=== PATIENT | female | born 1970 | race American Indian/Alaskan Native ===

== ENCOUNTER 2018-05-30 02:13 | Emergency (ER) | payer MEDICAID, MEDICARE ==
[~2018-05-30] VITALS: Ht 160 cm; Wt 260.0 kg
[~2018-05-30 02:13] MED LIST: ALPR-624 PO; BUPR150T PO; CALC0.5C2 PO; CALC260T6 PO; CHOL100010 PO; CLA10T PO; DOCU100T PO; ESCI20TA29 PO; EXEN5PEN2 SQ; FERR142T6 PO; GABA800T PO; HYDR1TAB PO; LEVA15HF4 IH; MAG400T PO; METF1000 PO; MODA200T25 PO; MOME17SP NS; NATE120T PO; OMEG1CAP54 PO; OXCA300T4 PO; PANT40TA39 PO; PIOG45TA PO; PSYL283P18 PO; ROSU5TAB4 PO; SUMA25TA35 PO; SYN0.1T PO; VITA200T6 PO; VITC500T PO; ZOLP12.531 PO
[2018-05-30] MEDS ORDERED: traMADol 50MG tablet PO ONE (02:30)
--- NOTE | 2018-05-30 09:45 | NUR ---
EDWARD FROM [employer] SPEAKING WITH PT.
--- NOTE | 2018-05-30 12:43 | NUR ---
INFORMED DR COTTRELL THAT PHYSICAL THERAPY GOT PATIENT UP TO HER WHEELCHAIR. PATIENT DESATURATED TO 89% AFTER GETTING PATIENT OOB. PHYSICAL THERAPIST PLACED PT ON O2 NC 2 LITERS. PATIENT'S WHEELCHAIR IS TOO WIDE TO ALLOW PATIENT ENTRY INTO ANY OF OUR BATHROOMS. PATIENT IS MOSTLYBED/ WC BOUND AT HOME AND TRANSFERS WITH ASSIST TO [facility] [place]
--- NOTE | 2018-05-30 12:46 | NUR ---
CALLED NURSING SUPERVISOR ROLLER SHOP TO OBTAIN BSC WIDE ENOUGH TO ACCOMADATE PATIENT TO ALLOW TRANSFER TO BSC
--- NOTE | 2018-05-30 12:59 | NUR ---
SPOKE WITH EDWARD, SOCIAL SERVICE HEAD COMPUTER GAME PROGRAMMER AT [employer] [facility] IS GOING TO LOOK AT PATIENT'S HOUSE TO SEE HOW THE PATIENT GETS IN AND OUT OF HER HOUSE AND LOOK AT THE RAMP. NURSING COMPUTER GAME PROGRAMMER CALLED BACK AND IS ATTEMPTING TO OBTAIN COMMODE WIDE ENOUGH TO ACCOMODATE THE PATIENT SO SHE CAN BOTH GO TO THE BATHROOM AND BE EVALUATED ON HER TRANSFER TO THE COMMODE WITH PHYSICAL THERAPY. SLITTER SERVICE AND SETTER SWETA INFORMED AND WILL CALL PHYSICAL THERAPY TO COME BACK TO EVALUATE PATIENT TRANSFER TO COMMODE.
--- NOTE | 2018-05-30 13:39 | NUR ---
PATIENT UP TO BSC. PER BREANNA GALLAGHER, PATIENT IS A MINIMAL ONE PERSON ASSIST AND WOULD BEFIT FRAM A WALKER
--- NOTE | 2018-05-30 13:47 | NUR ---
PATIENT STATES THAT THERE IS A CONCRETE RAMP ON THE OUTSIDE OF THE HOUSE. THEY HAVE A WOODEN RAMP FOR THE TWO STEPS INSDIE THE HOUSE BUT "SOMEBODY LEFT IT OUTSIDE IN THE RAIN"
--- NOTE | 2018-05-30 13:48 | NUR ---
PATIENT SITTING IN HER WHEELCHAIR AFTER VOIDING IN BSC
[2018-05-30] MEDS ORDERED: diphenhydrAMINE 25 MG/10 ML UD oral solution PO ONE (14:10)
--- NOTE | 2018-05-30 15:23 | NUR ---
SPOKE WITH MIGUEL ANGEL LEON FROM [employer] IS BRINGING TWO GEOMATS
--- NOTE | 2018-05-30 15:24 | NUR ---
SPOKE WITH PATIENTS EVERARDO [phone]. SPOKE TO IN [place], HE IS AWARE THAT HIS IS DUE TO BE TRANSPORTED HOME AT 1630 TODAY. IS AT HOME
--- NOTE | 2018-05-30 15:27 | NUR ---
EDWARD IS WORKING ON OBTAINING A WALKER FOR PATIENT PRIOR TO DISCHARGE. OTHERWISE, AMALIA IS GOING TO BORROW A WALKER AND A GAIT BELT
--- NOTE | 2018-05-30 16:23 | NUR ---
PATIENT UP TO BSC WITH FFW X 2
[2018-05-30 16:49] VITALS: BP 163/81
== END 2018-05-30 16:51 | disposition home or self-care (01) ==
LOC: ER 02:14
DX: S06.0X0A Concussion without loss of consciousness, initial encounter (principal); S89.81XA Other specified injuries of right lower leg, initial encounter; E66.01 Morbid (severe) obesity due to excess calories; K21.9 Gastro-esophageal reflux disease without esophagitis; E11.9 Type 2 diabetes mellitus without complications; G89.29 Other chronic pain; Z56.0 Unemployment, unspecified; Z98.890 Other specified postprocedural states; Z87.442 Personal history of urinary calculi; Z79.899 Other long term (current) drug therapy; Z88.1 Allergy status to other antibiotic agents; Z88.2 Allergy status to sulfonamides; Z88.5 Allergy status to narcotic agent; Z88.6 Allergy status to analgesic agent; Z88.8 Allergy status to other drugs, medicaments and biological substances; W18.49XA Other slipping, tripping and stumbling without falling, initial encounter; Y93.89 Activity, other specified; Y92.098 Other place in other non-institutional residence as the place of occurrence of the external cause; Y99.8 Other external cause status
CPT/HCPCS: 97161; 97530; 99284; Q0163; 99283

== ENCOUNTER 2018-06-17 11:29 | Emergency (ER) | payer MEDICARE ==
[~2018-06-17] VITALS: Ht 167.6 cm; Wt 272.7 kg
[~2018-06-17 11:29] MED LIST changes: +CEPH-571 PO; +DOXY100C43 PO
[2018-06-17 12:44] VITALS: BP 125/72
--- NOTE | 2018-06-17 12:49 | NUR ---
CALLED [facility]: THEY HAVE A BARIATRIC COMMODE AVAILABLE FOR 1000 LB PATIENT; ANNIE HUTCHINS WROTE ORDER AND FAXED IT TO THEM ASSISTED PATIENT TO BEDSIDE COMMODE: VOIDED: 1 PERSON ASSIT TO COMMODE
--- NOTE | 2018-06-17 13:45 | NUR ---
RADHA RALPH CALLED [facility] FOR PT TRANSPORT, [facility] IS DUE TO CALL BACK TO GIVE US AN ETA FOR TRANSPORT.
--- NOTE | 2018-06-17 14:06 | NUR ---
FOLLOW UP CALL TO [facility] [phone] TO CONFIRM RECEIPT OF ORDER AND ETA ON DELIVERY OF BSC
--- NOTE | 2018-06-17 16:25 | NUR ---
[facility] at the bedside to waste picker pt
--- NOTE | 2018-06-17 16:39 | NUR ---
PATIENT AMBULATED OVER 10 FEET WITH FFW TO EMS ELISABETH BACON AND CREW FROM [facility] AND OBSERVED HER WALKING TO [facility] SENT TO [facility] TO SOLAR DESIGN ENGINEER BARIATRIC COMMODE: ALL INFO FAXED AND CONFIRMED BY LAURYN AT [facility] DONATED A REGULAR FFW TO PATIENT PATIENT PROVIDED EMS TRANSFER SHEET WITH HANDLES
[2018-06-22] MEDS ORDERED: TRAM50TA2 PO (14:36)
== END 2018-06-17 16:47 | disposition home or self-care (01) ==
LOC: ER 11:31
DX: S50.12XD Contusion of left forearm, subsequent encounter (principal); S50.11XD Contusion of right forearm, subsequent encounter; L08.89 Other specified local infections of the skin and subcutaneous tissue; B58.89 Toxoplasmosis with other organ involvement; E66.01 Morbid (severe) obesity due to excess calories; K21.9 Gastro-esophageal reflux disease without esophagitis; E11.9 Type 2 diabetes mellitus without complications; G89.29 Other chronic pain; Z98.890 Other specified postprocedural states; Z88.1 Allergy status to other antibiotic agents; Z56.0 Unemployment, unspecified; Z88.5 Allergy status to narcotic agent; Z88.6 Allergy status to analgesic agent; Z88.8 Allergy status to other drugs, medicaments and biological substances; Z79.899 Other long term (current) drug therapy; W18.11XD Fall from or off toilet without subsequent striking against object, subsequent encounter
CPT/HCPCS: 99283

== ENCOUNTER 2018-06-22 09:04 | Inpatient (IN) | payer MEDICARE, OTHER | END 2018-07-22 14:10 | disposition home or self-care (01) | LOC: PCU 3S 07-02 17:30 → ER 09:04 → ORTHO 4S 13:14 → PCU 3S 06-24 15:31 | DX: N17.9 Acute kidney failure, unspecified (principal); E43 Unspecified severe protein-calorie malnutrition; E87.5 Hyperkalemia; E11.22 Type 2 diabetes mellitus with diabetic chronic kidney disease; E86.0 Dehydration; E66.01 Morbid (severe) obesity due to excess calories; I27.81 Cor pulmonale (chronic) ==